=== PATIENT | female | born 1980 | race Caucasian/White ===

== ENCOUNTER 2022-03-07 15:45 | Emergency (ER) | payer MEDICAID, SELFPAY ==
[2022-03-07 15:48] VITALS: BP 152/94; PULSE 80; RESP 16; TEMP 36.7; O2SAT 96
--- NOTE | 2022-03-07 16:03 | ED.GENADUL_ITS ---
Discharge Plan Disposition Patient Disposition: HOME Condition: Stable Discharge Details Clinical Impression: Laceration of right forearm without foreign body Primary Care Provider: Zach Franklin ED Provider: Zach Aburto Home Meds and New Rx's Prescriptions: Continued lisinopril 20 MG tablet 20 mg PO DAILY ibuprofen 800 MG tablet 800 mg PO DIRECTED amoxicillin-pot clavulanate 875-125 mg tablet 125 tab PO DAILY Vyvanse 50 mg capsule 50 mg PO DAILY Label Comments: TAKE 1 CAPSULE BY MOUTH ONCE DAILY IN THE MORNING FOR 28 DAYS buprenorphine-naloxone 2-0.5 mg film 0.5 film sublingual DAILY Label Comments: dissolve 1 FILM under the tongue once daily buprenorphine-naloxone 12-3 mg film 3 film sublingual DAILY Label Comments: dissolve 1 FILM under the tongue once daily Discharge Instructions Instructions: Skin Adhesive Care (ED) Additional Instructions: if there is spreading redness, severe pain, or yellow white discharge from the wound return to the emergency department Medical Decision Making 42 yo female comes in with complaints of a cut on her right forearm. She was at a local [employer] and using a portapotty the door closed quickly and a plastic piece but her right mid anterior forearm. She denies falling or other injuries. She has a 1cm superficial skin tear of the forearm, normal rom of the wrist and elbow and normal pulses and sensation. Wound was cleaned thoroughly with sterile water and closed with skin adhesive. Tetatnus updated as she said her last one was over 5 years ago. She is stable for d/c, return precautions given Differential Diagnosis Differential Diagnosis: abrasion, laceration HPI General Mode of arrival: ambulatory . Date/Time Provider Initiated Documentation: 03/07/22 15:46 . Limitations to Documentation: no limitations . Information obtained by: patient . History of Present Illness 42 year old F presents to the emergency department with the chief complaint of cut on her right forearm, described as mild, with intensity rated at 2. and it has been constant. No relieving factors improve symptom(s), No exacerbating factors reported . Patient notes no other symptoms.. Patient did receive the following treatments prior to arrival, none Related Data Home Medications Medication Instructions Recorded Confirmed ibuprofen 800 mg tablet 800 mg PO DIRECTED 06/11/14 06/11/14 lisinopril 20 mg tablet 20 mg PO DAILY 06/11/14 06/11/14 amoxicillin 875 mg-potassium 125 tab PO DAILY 03/07/22 03/07/22 clavulanate 125 mg tablet buprenorphine 12 mg-naloxone 3 mg 3 film sublingual DAILY 03/07/22 03/07/22 sublingual film buprenorphine 2 mg-naloxone 0.5 mg 0.5 film sublingual DAILY 03/07/22 03/07/22 sublingual film lisdexamfetamine 50 mg capsule 50 mg PO DAILY 03/07/22 03/07/22 (Vyvanse) Allergies Allergy/AdvReac Type Severity Reaction Status Date / Time Sulfa (Sulfonamide Allergy Mild Hives Unverified 03/07/22 15:53 Antibiotics) General Stated Complaint: Laceration MONA: 4 Review of Systems All systems reviewed & are unremarkable except as noted in HPI and below Constitutional Constitutional: Denies chills, Denies fever(s) and Denies weakness Cardiovascular Cardiovascular: Denies chest pain and Denies dyspnea Respiratory Respiratory: Denies cough and Denies dyspnea Gastrointestinal Gastrointestinal: Denies abdominal pain, Denies nausea and Denies vomiting Integumentary/Breasts Skin/Breast: Denies rash Neurologic Neurologic: Denies weakness PFS All Active Problems (Updated 03/07/22 @ 16:09 by Zach Aburto MD) Laceration of right forearm without foreign body (Acute) Social History Smoking/Tobacco Use Status: Current every day Tobacco Type: cigarettes Smoking risk assessment performed?: Yes Alcohol Intake: never Drug use: Never Substance use type: does not use Do you feel safe at home: Yes Do you feel safe in your relationship?: Yes Exam Const General: no acute distress Orientation: alert HENMT Head: normal to inspection Ears: external ears normal General nose exam: external nose normal Mouth: moist mucous membranes Eyes General: appearance normal, both eyes and all related structures Neck Neck: normal visual inspection Resp Effort & Inspection: normal respiratory effort and able to speak in complete sentences Cardio Rate: regular rate Skin General skin exam: no rashes or lesions noted Neuro General: patient alert and patient oriented x3 Extrem General: full ROM and capillary refill normal Psych Mental Status: mental status grossly normal Course Vital Signs Vital signs: Vital Signs Temperature 36.7 C 03/07/22 15:48 Pulse 80 03/07/22 15:48 Respiratory Rate 16 03/07/22 15:48 Blood Pressure 152/94 H 03/07/22 15:48 Pulse Oximetry 96 03/07/22 15:48 Temperature 36.7 C 03/07/22 15:48 Pulse 80 03/07/22 15:48 Respiratory Rate 16 03/07/22 15:48 Respiratory Effort 03/07/22 15:56 Blood Pressure 152/94 H 03/07/22 15:48 Pulse Oximetry 96 03/07/22 15:48
[2022-03-07] MEDS: Tetanus & Diphtheria Tox,ADULT 0.5 ML VIAL IM (16:08)
[2022-03-07 16:17] VITALS: PULSE 72; RESP 16; O2SAT 98
== END 2022-03-07 16:16 | disposition home or self-care (01) ==
PROVIDERS: Emergency Provider Emergency Medicine; PCP Family Medicine
DX: S51.811A Laceration without foreign body of right forearm, initial encounter (principal); W26.8XXA Contact with other sharp object(s), not elsewhere classified, initial encounter
CPT/HCPCS: 90471; 99284; 99283